=== PATIENT | male | born 2000 | race Caucasian/White ===

== ENCOUNTER 2024-07-07 21:04 | Emergency (ER) | payer BC, OTHER | END 2024-07-07 22:26 | disposition home or self-care (01) | LOC: KA.ED 21:04 | DX: S60.222A Contusion of left hand, initial encounter (principal); W23.1XXA Caught, crushed, jammed, or pinched between stationary objects, initial encounter; Y99.0 Civilian activity done for income or pay | CPT/HCPCS: 73130-LT; 99283 ==